=== PATIENT | female | born 1995 | race Caucasian/White ===

== ENCOUNTER 2018-12-18 14:00 | Emergency (ER) | payer SELFPAY ==
[~2018-12-18] VITALS: Wt 74.5 kg
[2018-12-18] MEDS ORDERED: IBUPROFEN 600 MG TAB PO ONE (17:00)
[2018-12-18] MEDS ORDERED: IBUP-1542 PO (17:44)
--- NOTE | 2018-12-18 17:47 | ERD ---
ER Documentation Chief Complaint Chief Complaint HEADACHE X2 WEEKS, NO DIZZINESS, NO N/V HPI 23-year-old female presents with a headache on the top of her head for the last 2 weeks. Denies any history of trauma. She denies any vomiting, visual changes, weakness, deficits. She was treated for possible sinusitis with Zithromax. She had brief improvement but symptoms return. She denies any current URI symptoms. She denies history of migraines or previous headaches. Pain is nonradiating and dull. ROS All systems reviewed and are negative except as per history of present illness. Medications Home Meds Active Scripts Ibuprofen* (Motrin*) 600 Mg Tab, 600 MG PO Q6, #20 TAB Prov:LESLEY ELIZABETH MD 12/18/18 Allergies Allergies: Coded Allergies: No Known Allergy (Unverified , 12/18/18) PMhx/Soc Medical and Surgical Hx: pt denies Medical Hx, pt denies Surgical Hx Hx Alcohol Use: Yes Hx Substance Use: No Hx Tobacco Use: No Smoking Status: Never smoker FmHx Family History: No diabetes, No coronary disease, No other Physical Exam Vitals Vital Signs Date Temp Pulse Resp B/P (MAP) Pulse Ox O2 O2 Flow FiO2 Time Delivery Rate 12/18/18 97.3 94 17 143/95 99 14:04 (111) Physical Exam Const: No acute distress Head: Atraumatic Eyes: Normal Conjunctiva ENT: Normal External Ears, Nose and Mouth. Neck: Full range of motion. No meningismus. Resp: Clear to auscultation bilaterally Cardio: Regular rate and rhythm, no murmurs Abd: Soft, non tender, non distended. Normal bowel sounds Skin: No petechiae or rashes Back: No midline or flank tenderness Ext: No cyanosis, or edema Neur: Awake and alert Psych: Normal Mood and Affect Results 24 hrs Current Medications Medications Dose Sig/Susan Start Time Status Last (Trade) Ordered Route PRN Stop Time Admin Dose Reason Admin Ibuprofen 600 mg ONCE ONCE 12/18/18 DC 12/18/18 (Motrin) PO 17:00 16:53 12/18/18 17:01 Procedures/MDM Patient presents with headache of uncertain etiology without a previous history of headaches for last 2 weeks. She has no evidence of neurologic deficits, meningismus, and essentially has normal exam. Given patient concern of uncertain etiology CT brain was performed which was read as normal. Patient will be treated with ibuprofen, further observation at home and return precautions. The patient was stable with no new complaints during the ER course. Clinically, there is no current evidence to suggest meningitis, sepsis, acute abdomen, pneumonia, stroke, acute coronary syndrome, pulmonary embolism, aortic dissection or any other emergent condition appearing to require further evaluation or hospitalization. Patient counseled regarding my diagnostic impression and care plan. Prior to discharge all questions answered. Pt agrees with treatment plan and understands strict return precautions. Pt is instructed to follow up with primary care provider within 24-48 hours. Precautionary instructions provided including instructions to return to the ER if not improving or for any worsening or changing symptoms or concerns. Departure Diagnosis: Primary Impression: Headache Headache type: unspecified Headache chronicity pattern: unspecified pattern Intractability: not intractable Qualified Codes: R51 - Headache Condition: Stable Patient Instructions: Self-Care for Headaches Referrals: NO PRIMARY,CARE PHYSICIAN (PCP) Additional Instructions: CT brain read as normal no evidence of sinusitis. May be tension headache. Drink plenty of fluids. See primary doctor for further evaluation return for new or worsening symptoms-fevers, visual changes, vomiting, weakness. LESLEY ELIZABETH MD Dec 18, 2018 17:47
[2018-12-18 17:57] VITALS: BP 130/77; PULSE 78; RESP 16
== END 2018-12-18 17:59 | disposition home or self-care (01) ==
LOC: FTE 14:00
DX: R51 Headache (principal)
CPT/HCPCS: 70450